=== PATIENT | male | born 1985 | race Caucasian/White ===

== ENCOUNTER 2022-04-19 17:36 | Emergency (ER) | payer BC, SELFPAY ==
[2022-04-19 17:40] VITALS: BP 128/96; PULSE 80; RESP 18; TEMP 37.2; O2SAT 99
--- NOTE | 2022-04-19 18:06 | ECG_ITS ---
Measurements Intervals [place] Rate: 68 P: 27 NC: 154 QRS: 38 QRSD: 100 T: 32 QT: 378 QTc: 403 Interpretive Statements SINUS RHYTHM NO PREVIOUS ECG AVAILABLE FOR COMPARISON Electronically Signed On 04-20-2022 15:20:49 [employer] by Holland Barron M.D.
--- NOTE | 2022-04-19 18:18 | ED.CHESTPAIN ---
HPI - Chest Pain General Chief Complaint: Chest Pain Stated Complaint: INJURED CLAVICLE Time Seen by Provider: 04/19/22 18:00 Source: patient Mode of arrival: ambulatory Limitations: no limitations History of Present Illness HPI narrative: Alberto is a 36-year-old male patient presenting to the clinic today with complaints of right anterior clavicle pain with some sternal pain as well as numbness and tingling occasionally in to the left shoulder. He denies any known injury. He denies any shortness of breath or any other chest pain. History of high blood pressure. Denies any headache. States he has not had been doing any heavy lifting except for lifting his son. Related Data Allergies Allergy/AdvReac Type Severity Reaction Status Date / Time No Known Allergies Allergy Verified 09/22/21 08:11 Review of Systems Review of Systems: Pertinent positives per HPI. Patient denies any fever, chills, rash, headache, visual changes, dizziness, cough, runny nose, sore throat, shortness of breath, chest pain, palpitations, nausea, vomiting, diarrhea, constipation, abdominal pain, or any urinary issues. PMFSH Past Medical History Medical History BMI 23.0-23.9, adult BMI 24.0-24.9, adult BMI 25.0-25.9,adult Smoker Family History Family History Grandparent Hypertension Carcinoma of colon Family history of malignant neoplasm of male breast Family history of malignant neoplasm of urinary bladder Family history of type 2 diabetes mellitus Father Anxiety High cholesterol Mother Hypertension High cholesterol Sibling Anxiety Social History Social History Smoking status: Current every day smoker (vapes) Tobacco type: cigarettes Second hand tobacco smoke exposure: No Alcohol intake: current Substance use: never Substance use type: does not use Additional occupation/education comments: sales Gender identity (if verbalized by the patient): Male Comments At the time of my signature, I reviewed and agree with the nursing past medical, surgical, social, and family history. There is no relevant family history pertinent to the patient complaint. Exam Narrative: General: Well-developed, well nourished, in no apparent distress Head: Normocephalic, atraumatic. Chest: Normal appearance, even rise and fall of chest wall, clavicles normal in appearance, Cardio: Regular rate and rhythm, s1 and s2 normal, no murmur appreciated. Resp: Clear to auscultation bilaterally, no rhonchi, rales, wheezing or rubs. Extremities: No deformity, no edema, no cyanosis, capillary refill less than 2 seconds, peripheral pulses palpable and strong. Integumentary: [place], warm, and dry, intact without lesion, no rashes. Course Course Emergency Course: Portions of this record may have been created with voice recognition software. Level of Care: Express Care Visit Vital Signs Vital signs: Vital signs reviewed MDM - Chest Pain MDM Narrative Medical decision making narrative: At the time of visit patient is resting comfortably on the exam table. Ekg was completed and showed normal sinus rhythm heart rate of 60 beats per minute without ectopy. I suspect patient has acute chest wall pain/clavicular pain. Prescription for naproxen was sent to the pharmacy and supportive measures were discussed with the patient he voiced understanding of discharge instructions and agrees to treatment plan. Differential Diagnosis Differential diagnosis: Likely stable angina, atypical chest pain, costochondritis, chest pain and other (Clavicle fracture, clavicular pain) ECG Data EKG #1: Attestation: I personally reviewed and interpreted this ECG as follows: ECG completion date: 04/19/22 ECG completion time: 18:22 Prior ECG tracings: not available for review Interpretation: EKG shows normal sinus r
== END 2022-04-19 18:30 | disposition home or self-care (01) ==
PROVIDERS: Emergency Provider Nurse Practitioner Family; PCP Family Medicine
DX: M25.511 Pain in right shoulder (principal); R07.89 Other chest pain; F17.290 Nicotine dependence, other tobacco product, uncomplicated
CPT/HCPCS: 93005; 99213; G0463

== ENCOUNTER → 2022-07-01 10:57 | Outpatient (CLI) | payer BC, SELFPAY ==
--- NOTE | ~2022-07-01 | XR_ITS ---
EXAMINATION: XR ribs BI 3V w CXR 2V INDICATION: Precordial pain TECHNIQUE: PA and lateral views of the chest and 3 views of the bilateral ribs were obtained. COMPARISON: None. FINDINGS: The lungs are free of acute opacities. No pleural effusion or pneumothorax. The cardiomedia stinal silhouette is normal. There is subtle periosteal reaction at the anterolateral aspect of the l eft ninth rib could reflect healing fracture. A similar finding is seen at the anterolateral aspect o f the right fourth rib. IMPRESSION: 1. Possible healing bilateral rib fractures. No acute cardiopulmonary abnormality. Reviewed, dictated and finalized at location A. [employer] IMPRESSION: 1. Possible healing bilateral rib fractures. No acute cardiopulmonary abnormali ty.
== END ==
PROVIDERS: PCP Family Medicine; Visit Provider Nurse Practitioner Family
DX: R07.2 Precordial pain (principal); R91.8 Other nonspecific abnormal finding of lung field
CPT/HCPCS: 71046; 71110

== ENCOUNTER → 2022-08-03 08:41 | Outpatient (CLI) | payer BC, SELFPAY ==
--- NOTE | ~2022-08-03 | XR_ITS ---
Left Shoulder Technique: AP and axillary views were obtained. Clinical History: Pain Findings: There is borderline widening of the coracoclavicular distance. No fracture identified. Tom ohumeral joint is intact. Soft tissues are unremarkable. Impression: Borderline widening of the coracoclavicular distance. Correlate for AC joint injury. Follow-up MR cou ld be considered to evaluate the coracoclavicular ligaments. No fracture or glenohumeral dislocation. Reviewed, dictated and finalized at location M. Impression: Borderline widening of the coracoclavicular distance. Correlate for AC joint in jury. Follow-up MR could be considered to evaluate the coracoclavicular ligamen ts. No fracture or glenohumeral dislocation.
== END ==
PROVIDERS: PCP Family Medicine; Visit Provider Nurse Practitioner Family
DX: R29.898 Other symptoms and signs involving the musculoskeletal system (principal); M25.512 Pain in left shoulder
CPT/HCPCS: 73030

== ENCOUNTER 2022-12-12 13:12 | Emergency (ER) | payer BC, SELFPAY ==
--- NOTE | 2022-12-12 13:17 | ED.SKABFB ---
HPI - Skin/Abscess/Foreign Bdy General Chief complaint: Skin/Abscess/Foreign Body Stated complaint: rash on stomach Source: patient and RN notes reviewed History of Present Illness HPI narrative: 37 yo M presents to urgent care with complaints of an itchy rash on his stomach. Pt states he first noticed this rash on and ever since then, it has been spreading to other areas such as his legs and back. Pt denies any new meds, foods, lotions, detergents, or soaps. Pt does admit to having 3 dogs. Pt has not taken anything for his rash. Related Data Allergies Allergy/AdvReac Type Severity Reaction Status Date / Time No Known Allergies Allergy Verified 12/12/22 13:29 Review of Systems Review of Systems: CONSTITUTIONAL: Denies fever, chills, or sweats. EYES: Denies visual changes, redness, or discharge. ENT: Denies otalgia and sore throat CARDIOVASCULAR: Denies chest pain, palpitations, or edema. RESPIRATORY: Denies cough or dyspnea. GASTROINTESTINAL: Denies abdominal pain, nausea, vomiting, or diarrhea. GENITOURINARY: Denies dysuria or hematuria. SKIN: rash on stomach MUSCULOSKELETAL: Denies back pain, joint pain, or myalgia. NEUROLOGIC: Denies headache, numbness, or weakness. Pertinent positives per HPI. PMFSH Past Medical History Medical History BMI 22.0-22.9, adult BMI 23.0-23.9, adult BMI 24.0-24.9, adult BMI 25.0-25.9,adult Smoker Family History Family History Grandparent Hypertension Carcinoma of colon Family history of malignant neoplasm of male breast Family history of malignant neoplasm of urinary bladder Family history of type 2 diabetes mellitus Father Anxiety High cholesterol Mother Hypertension High cholesterol Sibling Anxiety Social History Social History Smoking status: Former smoker (vapes) Tobacco type: cigarettes Second hand tobacco smoke exposure: No Alcohol intake: current Substance use: never Substance use type: does not use Lack of Transportation: No Lack of Food: Never True Current Housing: I Have Housing Concerned About Future Housing: No Difficulty Paying Gas/Electric Bills: No Difficulty Paying for Meds: No Currently Unemployed: No Education: High School Diploma/GED Difficulty w/ Childcare or Family Care: No Living arrangements: with family Occupation/Education: occupation 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 Gender identity (if verbalized by the patient): Male Comments At the time of my signature, I reviewed and agree with the nursing past medical, surgical, social, and family history. There is no relevant family history pertinent to the patient complaint. Exam Narrative: GENERAL: This is a well-nourished, well-developed patient, in no apparent distress. HEAD: normocephalic, atraumatic. EYES: Sclera clear/white. Vision is grossly intact. EARS: External ears normal, auditory canals clear and without drainage. Hearing grossly intact. NOSE: External nose normal with no obvious nasal discharge, nares without redness, no rhinorrhea. THROAT: Mucous membranes moist, posterior pharynx clear. NECK: Neck supple, non-tender without lymphadenopathy, masses or thyromegaly. CARDIOVASCULAR: Regular rate and rhythm without murmurs, gallops, or rubs. RESPIRATORY: Clear to auscultation. Breath sounds equal bilaterally. No wheezes, rales, or rhonchi. GASTROINTESTINAL: Abdomen soft, non-tender, nondistended. Bowel sounds are active. No hepato-splenomegaly, or palpable masses. No guarding. SKIN: erythremic, dry, papules, and patches, not exceeding 5 mm in diameter, scattered to abdomen, back, and legs. NEURO: awake, alert, and oriented to person, place and time. There were no obvious focal neurologic abnormalities. EXTREMITIES: No clubbing, cyanosis, or edema. No joint tendernes
[2022-12-12 13:31] VITALS: BP 132/104; PULSE 90; RESP 16; TEMP 37.1; O2SAT 100
== END 2022-12-12 13:44 | disposition home or self-care (01) ==
PROVIDERS: Emergency Provider Nurse Practitioner Family; PCP Family Medicine
DX: R21 Rash and other nonspecific skin eruption (principal)
CPT/HCPCS: 99213; G0463

== ENCOUNTER 2022-12-24 10:40 | Outpatient (CLI) | payer BC, SELFPAY ==
[2022-12-29 16:33] LABS: Testosterone Free 57.7 pg/mL (35.0-155.0); Testosterone Total 280 ng/dL (250-1100)
== END 2022-12-24 10:41 | disposition home or self-care (01) ==
LOC: ANHLAB 10:42
PROVIDERS: PCP Family Medicine; Visit Provider Nurse Practitioner Family
DX: R79.89 Other specified abnormal findings of blood chemistry (principal)
CPT/HCPCS: 36415; 84402; 84403

== ENCOUNTER 2023-09-28 10:08 | Emergency (ER) | payer BC, SELFPAY ==
[2023-09-28 10:14] VITALS: BP 110/81; PULSE 77; RESP 16; TEMP 37.4; O2SAT 97
--- NOTE | 2023-09-28 10:35 | ED.URI ---
HPI - URI/Sore Throat General Chief Complaint: Upper Respiratory Infection Stated Complaint: SORE THROAT/HEADACHE/BODY ACHES Time Seen by Provider: 09/28/23 10:35 Source: patient Mode of arrival: ambulatory Limitations: no limitations History of Present Illness HPI Narrative: 37-year-old male presents with complaint of headache, body aches, fatigue, sore throat for 1 day. Afebrile. Denies nausea vomiting. Known strep exposure. All systems reviewed and negative except as noted above. Related Data Allergies Allergy/AdvReac Type Severity Reaction Status Date / Time No Known Allergies Allergy Verified 09/28/23 10:32 Review of Systems Review of Systems: CONSTITUTIONAL: Denies fever, chills, or sweats. Reports fatigue. EYES: Denies visual changes, redness, or discharge. ENT: Denies rhinorrhea, congestion. Reports sore throat. Denies otalgia. CARDIOVASCULAR: Denies chest pain, palpitations, or edema. RESPIRATORY: Denies cough or dyspnea. GASTROINTESTINAL: Denies abdominal pain, nausea, vomiting, or diarrhea. GENITOURINARY: Denies dysuria or hematuria. SKIN: Denies rash or itching. MUSCULOSKELETAL: Denies back pain, joint pain. Reports myalgia. NEUROLOGIC: Denies headache, numbness, or weakness. PSYCHIATRIC: Denies anxiety or depression. All other systems reviewed are negative, except as documented in HPI. [facility] Past Medical History Medical History BMI 22.0-22.9, adult BMI 23.0-23.9, adult BMI 24.0-24.9, adult BMI 25.0-25.9,adult Smoker Sore throat Family History Family History Grandparent Hypertension Carcinoma of colon Family history of malignant neoplasm of male breast Family history of malignant neoplasm of urinary bladder Family history of type 2 diabetes mellitus Father Anxiety High cholesterol Mother Hypertension High cholesterol Sibling Anxiety Social History Social History Smoking status: Current every day smoker Tobacco type: e-cigarettes/vaping Second hand tobacco smoke exposure: No Alcohol intake: current Substance use: never Substance use type: does not use Lack of Transportation: No Lack of Food: Never True Current Housing: I Have Housing Concerned About Future Housing: No Difficulty Paying Gas/Electric Bills: No Difficulty Paying for Meds: No Currently Unemployed: No Education: High School Diploma/GED Difficulty w/ Childcare or Family Care: No Living arrangements: with family Occupation/Education: occupation 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 Gender identity (if verbalized by the patient): Male Comments At time of signature, agree with nursing past medical, surgical, social and family history. There is no relevant family history pertinent to the presenting complaint. Exam Narrative: GENERAL: This is a well-nourished, well-developed patient, in no apparent distress. HEAD: normocephalic, atraumatic. EYES: PERRL. Sclera clear/white. Vision is grossly intact. EARS: External ears normal, auditory canals clear and without drainage, TMs normal without perforation. Hearing grossly intact. NOSE: External nose normal with no obvious nasal discharge, nares without redness, no rhinorrhea. THROAT: Mucous membranes moist, mild erythema with swelling. No exudates. NECK: Neck supple, non-tender without lymphadenopathy, masses or thyromegaly. CARDIOVASCULAR: Regular rate and rhythm without murmurs, gallops, or rubs. RESPIRATORY: Clear to auscultation. Breath sounds equal bilaterally. No wheezes, rales, or rhonchi. SKIN: warm, Dry, intact with no suspicious lesions or rash, good texture and turgor. NEURO: awake, alert, and oriented to person, place and time. There were no obvious focal neurologic abnormalities. EXTREMITIES: No joint ten
== END 2023-09-28 10:43 | disposition home or self-care (01) ==
PROVIDERS: Emergency Provider Nurse Practitioner Family; PCP Family Medicine
DX: J02.9 Acute pharyngitis, unspecified (principal); Z20.822 Contact with and (suspected) exposure to COVID-19; F17.290 Nicotine dependence, other tobacco product, uncomplicated
CPT/HCPCS: 87081; 87147; 87426; 87804; 87880; 99213; G0463

== ENCOUNTER 2023-10-29 09:39 | Emergency (ER) | payer BC, SELFPAY ==
--- NOTE | ~2023-10-29 | XR_ITS ---
XR knee RT 3V DATE: 10/29/2023 10:04 INDICATION: Twisted right knee bowing. Medial pain. TECHNIQUE: 3 views COMPARISON: None FINDINGS: Suprapatellar knee joint effusion. No fracture or dislocation, periosteal reaction or bone destruction. Joint spaces appear preserved. N o radiopaque intra-articular loose body or chondrocalcinosis. IMPRESSION: Suprapatellar knee joint effusion Reviewed, dictated and finalized at location A.
[2023-10-29 09:47] VITALS: BP 143/99; PULSE 76; RESP 16; TEMP 36.6; O2SAT 100
--- NOTE | 2023-10-29 09:47 | ED.LOWEXIN ---
HPI - Extremity Injury (Lower) General Chief Complaint: Extremity Injury, Lower Stated Complaint: twisted right knee Source: patient Mode of arrival: ambulatory Limitations: no limitations History of Present Illness HPI Narrative: 38 y/o male presented for c/o right knee pain x3 days after injury. States while mowing the grass he stepped into a hole and twisted the knee. Endorses pain and stiffness to the knee in the mornings, and swelling is worse in the evening. Pain to the medial aspect. Denies bruising, deformity, numbness, tingling or weakness. Has not taken anything for pain. Related Data Allergies Allergy/AdvReac Type Severity Reaction Status Date / Time No Known Allergies Allergy Verified 10/29/23 09:47 Review of Systems Review of Systems: CONSTITUTIONAL: Denies body aches, fever, chills CARDIOVASCULAR: Denies chest pain, palpitations, or edema. RESPIRATORY: Denies cough or dyspnea. GASTROINTESTINAL: Denies abdominal pain, nausea, vomiting, or diarrhea. SKIN: Denies rash, itching, or wounds. MUSCULOSKELETAL: Reports right knee pain NEUROLOGIC: Denies headache, numbness, tingling, or weakness. All systems reviewed & are unremarkable except as noted in HPI and below PMFSH Past Medical History Medical History BMI 22.0-22.9, adult BMI 23.0-23.9, adult BMI 24.0-24.9, adult BMI 25.0-25.9,adult Smoker Sore throat Family History Family History Grandparent Hypertension Carcinoma of colon Family history of malignant neoplasm of male breast Family history of malignant neoplasm of urinary bladder Family history of type 2 diabetes mellitus Father Anxiety High cholesterol Mother Hypertension High cholesterol Sibling Anxiety Social History Social History Smoking status: Current every day smoker Tobacco type: e-cigarettes/vaping Second hand tobacco smoke exposure: No Alcohol intake: current Substance use: never Substance use type: does not use Lack of Transportation: No Lack of Food: Never True Current Housing: I Have Housing Concerned About Future Housing: No Difficulty Paying Gas/Electric Bills: No Difficulty Paying for Meds: No Currently Unemployed: No Education: High School Diploma/GED Difficulty w/ Childcare or Family Care: No Living arrangements: with family Occupation/Education: occupation 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 Gender identity (if verbalized by the patient): Male Comments At time of signature, I have reviewed and agree with nursing past medical, surgical, social and family history unless otherwise noted. Please see nursing chart for further information. There is no relevant family history pertinent to the presenting complaint Exam Narrative: GENERAL: Well-appearing CHEST: Speaks in full sentences. No respiratory distress. HEART: Regular rate and rhythm. Normal and equal peripheral pulses. EXTREMITIES: Patient is able to bear weight and ambulate without pain to the right knee. No bruising, erythema or warmth. The right knee is without obvious asymmetry or deformity when compared to the other knee. Patient is able to tolerate full flexion, extension, internal and external rotation. No tenderness to palpation of the patella, no effusion or ballottement. No tenderness over the infrapatellar tendon. No tenderness over the proximal fibular head. No quadriceps tenderness. Distal motor and neurovascular status intact. SKIN: Warm, dry NEURO: Alert and oriented x3. PSYCH: Normal mood and affect Course Course Emergency Course: Patient is aware of diagnosis, understands and agrees to treatment plan. Anticipatory guidance given. Patient agrees to follow-up as directed and is aware of reasons to seek care at the emergency dep
== END 2023-10-29 10:58 | disposition home or self-care (01) ==
PROVIDERS: Emergency Provider Nurse Practitioner Family; PCP Family Medicine
DX: S86.911A Strain of unspecified muscle(s) and tendon(s) at lower leg level, right leg, initial encounter (principal); W17.2XXA Fall into hole, initial encounter; F17.290 Nicotine dependence, other tobacco product, uncomplicated
CPT/HCPCS: 73562; 99213; G0463

== ENCOUNTER 2023-11-09 09:06 | Outpatient (CLI) | payer BC, SELFPAY ==
--- NOTE | ~2023-11-09 | MR_ITS ---
EXAMINATION: MR knee RT wo con DATE: 11/09/2023 09:34 INDICATION: . Anterior cruciate ligament of the right knee TECHNIQUE: Magnetic resonance imaging (MRI) of the right knee was performed without intravenous contr ast. Sequences included coronal PD-weighted FSE, coronal PD-weighted FS FSE, sagittal T2-weighted FS E, sagittal PD-weighted FS FSE and axial PD weighted fat saturated FSE. COMPARISON: None. FINDINGS: Medial compartment: Likely complex medial meniscal tear with longitudinal horizontal tear plane extending to the inferior articular surface of the posterior horn of the medial meniscus. The tear plane appears relatively th ickened with irregular margins likely related to displacement of a meniscal flap which can be seen ex tending into the inferior gutter along the the more anterior medial meniscal body and with secondary degeneration along the tear plane. 2.1 x 1.0 x 0.6 cm para meniscal cyst which extends laterally from the posterior horn across the posterior margin of the posterior cruciate ligament. Articular cartila ge is normal. There is mild subarticular edema-like signal change along the medial rim of the medial tibial plateau which could relate either occult chondromalacia or altered stress distribution resulti ng from the meniscal tear and displaced meniscal flap. Lateral compartment: Lateral meniscus is normal. Articular cartilage is normal. Patellofemoral compartment: Small deep chondral fissuring without degenerative subchondral changes at the central aspect of the m edial patellar facet. Remaining articular cartilage is normal. Ligaments and tendons: Anterior and posterior cruciate ligaments are normal. The medial collateral ligament and fibular rossana ateral ligament complex are normal. The extensor mechanism is normal. The visualized medial and later al hamstring tendons as well as the iliotibial band are normal. Fluid: Small joint effusion at the suprapatellar pouch. No loose osteochondral bodies identified. Osseous/other: Normal marrow signal. No fracture or pathologic marrow replacing process. There is feathery muscular edema along the popliteus muscle which could represent extravasation of the joint effusion from the p opliteal recess or a low-grade strain of the popliteus muscle. IMPRESSION: 1. Complex medial meniscal tear with displacement medial meniscal flap arising from the posterior hor n and with moderate size associated posterior para meniscal cyst. 2. Small deep chondral fissure at the lateral patellar facet. 2. Mild feathery muscular edema at the popliteus muscle belly which could be related to low-grade str ain or extravasation of fluid from a likely reactive small knee joint effusion. Reviewed, dictated and finalized at location B. IMPRESSION: 1. Complex medial meniscal tear with displacement medial meniscal flap arising from the posterior horn and with moderate size associated posterior para menisc al cyst. 2. Small deep chondral fissure at the lateral patellar facet. 2. Mild feathery muscular edema at the popliteus muscle belly which could be re lated to low-grade strain or extravasation of fluid from a likely reactive smal l knee joint effusion.
== END 2023-11-09 09:07 ==
LOC: MICIMG 09:08
DX: S83.231A Complex tear of medial meniscus, current injury, right knee, initial encounter (principal); X58.XXXA Exposure to other specified factors, initial encounter; M25.061 Hemarthrosis, right knee
CPT/HCPCS: 73721

== ENCOUNTER 2024-03-14 09:20 | Outpatient (CLI) | payer BC, SELFPAY ==
--- NOTE | ~2024-03-14 | XR_ITS ---
EXAMINATION: XR_CERV2-3V_CR DATE: 03/14/2024 09:40 INDICATION: Anesthesia of skin. Bilateral hand tingling. TECHNIQUE: 5 views of cervical spine including standing views were obtained. COMPARISON: None. FINDINGS: There is 3 degrees levocurvature of cervical spine. Vertebral body heights are normal. Ther e is mildly decreased disc height at C3-C4. There is multilevel mild facet joint osteoarthritis. Ther e is mild central canal stenosis at C3-C4. No prevertebral soft tissue swelling. IMPRESSION: 1. Mild cervical spondylosis. Reviewed, dictated and finalized at location B.
== END 2024-03-14 09:21 | disposition home or self-care (01) ==
LOC: MICIMG 09:22
PROVIDERS: PCP Family Medicine; Visit Provider Physician Assistant Medical
DX: R20.0 Anesthesia of skin (principal); R20.2 Paresthesia of skin; M47.892 Other spondylosis, cervical region
CPT/HCPCS: 72040

== ENCOUNTER 2024-04-18 13:54 | Emergency (ER) | payer BC, SELFPAY ==
--- NOTE | ~2024-04-18 | XR_ITS ---
EXAMINATION: XR lumbar spine 2-3V DATE: 04/18/2024 15:29 INDICATION: Low back pain. TECHNIQUE: 3 views of lumbar spine were obtained. COMPARISON: Chest 2 views 07/01/2022 FINDINGS: Bone alignment is normal. Again seen is a chronic compression fracture of L1. There is mild ly decreased disc height at L4-L5. There is multilevel mild facet joint osteoarthritis. IMPRESSION: 1. Mild lumbar spondylosis. Reviewed, dictated and finalized at location A. [employer] MACHINE OPERATOR IMPRESSION: 1. Mild lumbar spondylosis.
[2024-04-18 13:55] VITALS: BP 167/106; PULSE 114; RESP 16; TEMP 36.4; O2SAT 97
--- NOTE | 2024-04-18 15:01 | ED_ITS ---
HPI - General Adult General Chief complaint: Back Pain/Injury Stated complaint: back pain Time Seen by Provider: 04/18/24 14:32 History of Present Illness HPI narrative: 38-year-old male presents emergency department for evaluation for lower back pain that started a few days ago. Patient states that he had some worsening back pain today with back spasms. Patient took hot bath and when getting dressed had worsening back spasms and was on the floor for approximately 5 hours before ended up calling EMS. Related Data Allergies Allergy/AdvReac Type Severity Reaction Status Date / Time No Known Allergies Allergy Verified 03/14/24 07:49 Review of Systems Review of Systems: All systems reviewed & are unremarkable except as noted in HPI and below PMFSH Past Medical History Medical History Screening cholesterol level Screening for diabetes mellitus Screening for thyroid disorder Smoker Sore throat Family History Family History Grandparent Hypertension Carcinoma of colon Family history of malignant neoplasm of male breast Family history of malignant neoplasm of urinary bladder Family history of type 2 diabetes mellitus Father Anxiety High cholesterol Mother Hypertension High cholesterol Sibling Anxiety Social History Social History Smoking status: Current every day smoker Tobacco type: e-cigarettes/vaping Second hand tobacco smoke exposure: No Alcohol intake: current Substance use: never Substance use type: does not use Lack of Transportation: No Lack of Food: Never True Current Housing: I Have Housing Concerned About Future Housing: No Difficulty Paying Gas/Electric Bills: No Difficulty Paying for Meds: No Currently Unemployed: No Education: High School Diploma/GED Difficulty w/ Childcare or Family Care: No Living arrangements: with family Occupation/Education: occupation 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 Gender identity (if verbalized by the patient): Male Exam Narrative: APPEARANCE: Uncomfortable appearing HEAD: normocephalic, atraumatic. EYES: PERRLA/EOMI, conjunctivae clear. NOSE: Normal no drainage EARS:TMS clear with good light reflex. THROAT: Pharynx clear, no exudate. NECK: Supple. No adenopathy, no masses. RESPIRATORY: Airway patent, respirations nonlabored. Clear to auscultation bilaterally, no rales, rhonchi, wheezing. CARDIOVASCULAR: Regular rate and rhythm without murmurs rubs or gallops. ABDOMINAL: Soft, nontender, nondistended, normal bowel sounds MUSCULOSKELETAL: Lower back tenderness to palpation NEURO: Alert. Cranial nerves II through XII intact. Good gait. Good coordination SKIN: Warm, dry. Normal Color Course Vital Signs Vital signs: Vital Signs Temperature 97.6 F 04/18/24 13:55 Pulse Rate 114 H 04/18/24 13:55 Respiratory Rate 16 04/18/24 13:55 Blood Pressure 167/106 H 04/18/24 13:55 Pulse Oximetry 97 04/18/24 13:55 Temperature 97.6 F 04/18/24 13:55 Pulse Rate 114 H 04/18/24 13:55 Respiratory Rate 16 04/18/24 13:55 Blood Pressure 167/106 H 04/18/24 13:55 Pulse Oximetry 97 04/18/24 13:55 Medical Decision Making Vital Signs Vital Signs: Vital Signs Temperature 97.6 F 04/18/24 13:55 Pulse Rate 114 H 04/18/24 13:55 Respiratory Rate 16 04/18/24 13:55 Blood Pressure 167/106 H 04/18/24 13:55 Pulse Oximetry 97 04/18/24 13:55 Temperature 97.6 F 04/18/24 13:55 Pulse Rate 114 H 04/18/24 13:55 Respiratory Rate 16 04/18/24 13:55 Blood Pressure 167/106 H 04/18/24 13:55 Pulse Oximetry 97 04/18/24 13:55 Discharge Plan Discharge Clinical Impression: Back spasm Patient Disposition: Home, Self-Care Condition: Stable Instructions: Antibiotic Form, Acute Low Back Pain (ED) Additional Instructions: Ibuprofen for pain control. Medrol Dosepak as directed until completed. Flexeril for muscle spasm. Shirley for pain control. Have close follow-up with your primary care physician. If you have any worsening symptoms then please call or return to the emergency department. Prescriptions: New hydrocodone-acetaminophen 5-325 mg tablet 1 tablet PO Q12H PRN (Reason: pain) Qty: 14 0RF cyclobenzaprine 10 mg tablet 10 mg PO BID PRN (Reason: muscle spasm) Qty: 14 0RF No Action lisinopril 5 mg tablet 5 mg PO DAILY Qty: 90 3RF paroxetine HCl 20 mg tablet 20 mg PO DAILY Qty: 90 2RF Follow-up/Referrals: Yrn Hermosillo MD [Primary Care Provider] -
[2024-04-18] MEDS: CYCLOBENZAPRINE HCL 10 MG TABLET PO (15:30)
[2024-04-18] MEDS: KETOROLAC 30 MG/ML VIAL (*BKC) IM (15:31)
[2024-04-18] MEDS: HYDROmorphone HCL INJ (*CRX) 1 MG/ML SYR IM ×2 (15:31→17:48)
[2024-04-18] MEDS: HYDROcodone/acetaminophen (*CRX) 5-325 MG TABLET 1 TAB PO (15:31)
== END 2024-04-18 18:20 | disposition home or self-care (01) ==
PROVIDERS: Emergency Provider Emergency Medicine; PCP Family Medicine
DX: M62.830 Muscle spasm of back (principal); F17.290 Nicotine dependence, other tobacco product, uncomplicated
CPT/HCPCS: 72100; 96372; 99284; A9270; J1171; J1885